=== PATIENT | female | born 1930 | race Caucasian/White ===

== ENCOUNTER 2017-05-16 11:16 | Emergency (ER) | payer OTHER, MEDICARE ==
[~2017-05-16] VITALS: Ht 152.4 cm; Wt 56.7 kg
[~2017-05-16 11:16] MED LIST: ACIDOPHILUS1 CAP PO; AGGRENOX 25 MG-1 CAP PO; ASPIRIN LOW DOS81 MG PO; CALCIUM 600600 M1 PO; CARLSON VITAM2000 IU PO; DOCUSATE SODIU100 MG PO; KEFLEX500 M1 PO; KEY-E400 IU PO; LISINOPRIL10 MG PO; LISINOPRIL5 MG PO; LOVENOX 4040 MG/0.4 SC; MASON NATURAL2000 IU PO; MULTI VITAMINS1 TAB PO; PERCOCET 325 MG1 TA2 PO; SIMVASTATIN80 MG PO; Senokot S PO; TOPROL XL 12.12.5 MG PO; TOPROL XL 25MG25 MG PO; VITAMIN B12 1541 TAB PO; VITAMIN B121000 MC2 PO
--- NOTE | 2017-05-16 14:41 | RADIOLOGY REPORT ---
EXAMINATION: LEFT FOOT AND ANKLE RADIOGRAPHS CLINICAL INFORMATION: 86-year-old woman with pain post fall. COMPARISON: 03/10/2015 radiographs TECHNIQUE: 3 views of the left ankle and 3 views of the left foot were obtained. FINDINGS: Ankle: There has been interval internal plate and screw fixation of previously visible distal fibular and tibial fractures. On today's film, there is no evidence of acute fracture and alignment is anatomic. Foot: There is no evidence of acute fracture. Alignment remains anatomic. There is degenerative loss of normal articular cartilage space. IMPRESSION: No evidence of acute fracture or dislocation involving the left foot or ankle.
--- NOTE | 2017-05-16 14:44 | RADIOLOGY REPORT ---
EXAMINATION: XR HIP, LEFT XR HIP, RIGHT XR KNEE, LEFT CLINICAL INFORMATION: Status post fall with bilateral hip pain COMPARISON: None TECHNIQUE: AP pelvis 2 views right hip 2 views left hip Four views of the left knee. FINDINGS: AP pelvis: The ilioischial and iliopectineal lines are maintained. There are mild degenerative changes at the level of the pubic symphysis. The sacroiliac joints appear symmetric. Degenerative changes are partially imaged involving the lower lumbar spine. Bowel gas pattern is nonspecific. A few calcified phleboliths are noted. Right hip: The femoral head appears normally located within the acetabulum. There is mild joint space narrowing with associated subchondral sclerosis along the acetabular roof. No fracture or dislocation. Left hip: The femoral head appears normally located within the acetabulum. There is mild joint space narrowing with chondral sclerosis along the acetabular roof. No fracture or subluxation. Left knee: There is significant joint space narrowing involving the medial compartment of the left knee with associated marginal osteophytes. There is moderate narrowing of the lateral compartment of the left knee with moderate osteophytes. No acute fracture or subluxation. No joint effusion. Small enthesophytes are present at the superior pole of the patella. Incidental note made of a bony excrescence along the medial aspect of the distal left femur. IMPRESSION: 1. No radiographic evidence for acute left or right hip fracture. 2. 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 3. Severe osteoarthritis involving the medial compartment of the left knee. No radiographic evidence for acute injury involving the left knee.
--- NOTE | 2017-05-16 15:38 | ED GI/GU/ABDOMINAL COMPLAINT ---
History of Present Illness General Chief Complaint: General Adult Stated Complaint: BIBA COULDN'T GET OUT OF BED, HIP,ANKLE PAIN Source: patient, family Exam Limitations: no limitations Vital Signs & Intake/Output Vital Signs & Intake/Output Vital Signs Date Time Temp Pulse Resp B/P B/P Pulse O2 O2 Flow FiO2 Mean Ox Delivery Rate 05/16 1152 98.7 64 15 146/75 94 Room Air Room Air Allergies Coded Allergies: codeine (Intermediate, PER PT: "WIPES ME OUT COMPLETELY" 05/16/17) Reconcile Medications Calcium Carbonate (Calcium 600) 600 MG TAB 1,200 TAB PO DAILY SUPPLEMENT ( Reported) Cephalexin (Keflex) 500 MG CAPSULE 1 CAP PO 4 TIMES/DAY cellulitis CHOLECALCIFEROL (VITAMIN D3) (Vitamin D) 2,000 IU SGL 1 SGL PO DAILY SUPPLEMENT (Reported) Cyanocobalamin (Vitamin B12) (Unknown Strength) TAB (Unknown Dose) PO DAILY SUPPLEMENT (Reported) Docusate Sodium 100 MG SGL 100 MG PO DAILY NEEDED PRN CONSTIPATION Enoxaparin Sodium (Lovenox 40MG/0.4ML) 40 MG/0.4 ML SYR 40 MG SC DAILY@1800 AIFB/ DVT PROPHYLAXIS Lactobacillus Acidophilus (Acidophilus) 1 CAP CAP 1 TAB PO DAILY SUPPLEMENT ( Reported) Lisinopril 10 MG TAB 1 TAB PO DAILY BP (Reported) Metoprolol Succ XL (Toprol XL 25MG) 25 MG TAB 1 TAB PO DAILY HIGH BLOOD PRESSURE Multivitamin (One Daily Multivitamin) 1 EACH TABLET 1 TAB PO DAILY SUPPLEMENT (Reported) OXYCODONE HCL/ACETAMINOPHEN (Percocet 5-325 MG Tablet) 325 MG/5 MG TAB 1 TAB PO Q6P PRN PAIN [Senokot S] 1 TAB PO BID CONSTIPATION Simvastatin (Zocor) 80 MG TABLET 1 TAB PO QPM CHOLESTEROL (Reported) Vitamin E (Traore-E) 400 IU CTB 1 TAB PO DAILY SUPPLEMENT (Reported) Triage Note: PT TO ED WITH SON-IN-LAW FOR C/C OF L ANKLE PAIN AND R HIP PAIN S/P FALLING ON WEDNESDAY AT 0300. PT DENIES HITTING HEAD OR PASSING OUT. ALSO COMPLAINS OF L KNEE PAIN AND BILATERAL HIP PAIN, RIGHT WORSE THAN LEFT. DENIED PAIN MEDS IN TRIAGE. NO OBVIOUS DEFORMITY NOTED. FALL RISK BAND APPLIED. Triage Nurses Notes Reviewed? yes ? N Is pt currently ? No Onset: Abrupt Duration: getting worse Timing: recent history Quality/Severity: moderate Severity Numbers: 5 Radiation: no radiation HPI: Patient is a 86-year-old female with past medical history of hypertension, vertigo, TIA, paroxysmal A. 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 Patient and family members deny any new fall Patient denies any fever chills weakness shortness of breath cough or leg swelling nausea vomiting abdominal pain chest pain and arm pain jaw pain diaphoresis. Denies any head strike neck pain back pain (Alejandro aPlomo) Past History Travel History Traveled to [place] past 21 day No Medical History Any Pertinent Medical History? see below for history Neurological: CVA, TIA, vertigo EENT: cataracts Cardiovascular: hyperlipidemia, paroxysmal atrial fibrillation Respiratory: NONE Gastrointestinal: NONE Hepatic: NONE Renal: NONE Musculoskeletal: NONE Psychiatric: NONE Endocrine: NONE Blood Disorders: NONE Cancer(s): NONE OB GYN/Reproductive: NONE History of MRSA: No History of VRE: No History of CDIFF: No Surgical History Surgical History: non-contributory Psychosocial History Who do you live with Patient/Self Services at Home None What is your primary language Urdu Tobacco Use: Never used Family History Family History, If Any: BROTHER FH: heart disease Hx Contributory? No (Alejandro Palomo) Review of Systems Review of Systems Constitutional: Reports: no symptoms. EENTM: Reports: no symptoms. Respiratory: Reports: no symptoms. Cardiovascular: Reports: no symptoms. GI: Reports: no symptoms. Genitourinary: Reports: no symptoms. Musculoskeletal: Reports: see HPI, joint pain. Skin: Reports: no symptoms. Neurological/Psychological: Reports: no symptoms. Hematologic/Endocrine: Reports: no symptoms. Immunologic/Allergic: Reports: no symptoms. All Other Systems: Reviewed and Negative (Alejandro Palomo) Physical Exam Physical Exam General Appearance: no apparent distress, comfortable, thin Head: atraumatic Eyes: Bilateral: normal appearance, PERRL. Ears, Nose, Throat, Mouth: hearing grossly normal Neck: normal inspection, full range of motion, no midline tenderness Respiratory: normal breath sounds, chest non-tender, no respiratory distress Cardiovascular: irregularly irregular Peripheral Pulses: 2+ radial (R), 2+ radial (L), 2+ dorsalis pedis (R), 2+ dorsalis pedis (L) Gastrointestinal: normal bowel sounds, soft, non-tender, no organomegaly Extremities: normal range of motion Skin: intact, normal color, warm/dry Comments: Bilateral shoulders normal inspection nontender full active range of motion Bilateral elbow and wrist normal inspection nontender full active range of motion Right hip normal inspection mild lateral hip point tenderness FULL ACTIVE range of motion patient able to perform straight leg raise Right knee and right ankle normal inspection nontender full active range of motion Left knee normal inspection nontender full active range of motion Left ankle normal inspection generalized point tenderness noted full active range of motion Core Measures ACS in differential dx? No Sepsis Present: No Sepsis Focused Exam Completed? No (Alejandro Palomo) Progress Differential Diagnosis: AAA, AMI, appendicitis, SBO Plan of Care: Orders Procedure Date/time Status EKG 05/16 1411 Active Laboratory Tests 05/16/17 1411: Troponin I Cancelled, CBC w Diff Cancelled, WBC Cancelled, RBC Cancelled, Hgb Cancelled, Hct Cancelled, MCV Cancelled, MCH Cancelled, MCHC Cancelled, RDW Cancelled, Plt Count Cancelled, MPV Cancelled Microbiology 05/16 1411 NASOPHARYN: Influenza Virus A & B Rapid Smear - CAN Cancelled: Cancelled via OE: Per MD Decision Differential diagnoses include fracture contusion ICH On initial examination patient was resting comply bedside and was asymptomatic x -rays were obtained from where patient was point tender showing unremarkable acute findings no concerns of fracture patient was neurovascularly intact patient was sitting in a wheelchair on initial examination however patient was able to ambulate with no assistance and denies any pain upon weight-bearing and gait activities patient rest complaining and the bedside for the physical exam Patient has nontender abdomen and no concerns of fracture at this time. Patient management evaluated the patient and will provide home health services son feels comfortable the patient can be discharged discussed disposition plan with Dr. BONE who agrees I strongly advised patient to begin using the walker for fall prevention Prior to evaluating patient patient had been resting in the waiting room in which I did order blood work and EKG due to the triage note stating that patient was too weak and painful to get out of bed however on examination patient was able to sit up and stand and walk without any assistance or pain this blood work and EKG was sent canceled No medications were administered prior to arrival Upon discharge patient looks well no apparent distress and will comply with discharge instructions and had no questions Diagnostic Imaging: Viewed by Me: Radiology Read. Radiology Impression: no fracture Initial ED EKG: none Comments: PATIENT: RONA EARLY PRESENT AGE: 86 PATIENT ACCOUNT NO: [id number] : [birth year] LOCATION: [facility] ORDERING PHYSICIAN: Satnam Bone MD SERVICE DATE: 05/16/17 EXAM TYPE: RAD - XRY-ANKLE 3 OR MORE VIEWS L; XRY-FOOT COMPLETE, LEFT EXAMINATION: LEFT FOOT AND ANKLE RADIOGRAPHS CLINICAL INFORMATION: 86-year-old woman with pain post fall. COMPARISON: 03/10/2015 radiographs TECHNIQUE: 3 views of the left ankle and 3 views of the left foot were obtained. FINDINGS: Ankle: There has been interval internal plate and screw fixation of previously visible distal fibular and tibial fractures. On today's film, there is no evidence of acute fracture and alignment is anatomic. Foot: There is no evidence of acute fracture. Alignment remains anatomic. There is degenerative loss of normal articular cartilage space. IMPRESSION: No evidence of acute fracture or dislocation involving the left foot or ankle. DICTATED BY: Michelle Bobo MD DATE/TIME DICTATED:05/16/171435 ARCADE TECHNICIAN:MARIA ALEJANDRA DATE/TIME TRANSCRIBED:05/16/171435 CONFIDENTIAL, DO NOT COPY WITHOUT APPROPRIATE AUTHORIZATION. <Electronically signed in Other Vendor System> SIGNED BY: Michelle Bobo MD 05/16/17 1441 PATIENT: RONA EARLY PRESENT AGE: 86 PATIENT ACCOUNT NO: [id number] : [birth year] LOCATION: [facility] ORDERING PHYSICIAN: Satnam Bone MD SERVICE DATE: 05/16/17 EXAM TYPE: RAD - XRY-HIP 4 VIEWS UNI, LEFT; XRY-HIP 4 VIEWS UNI, RIGHT; XRY-KNEE COMPLETE LEFT EXAMINATION: XR HIP, LEFT XR HIP, RIGHT XR KNEE, LEFT CLINICAL INFORMATION: Status post fall with bilateral hip pain COMPARISON: None TECHNIQUE: AP pelvis 2 views right hip 2 views left hip Four views of the left knee. FINDINGS: AP pelvis: The ilioischial and iliopectineal lines are maintained. There are mild degenerative changes at the level of the pubic symphysis. The sacroiliac joints appear symmetric. Degenerative changes are partially imaged involving the lower lumbar spine. Bowel gas pattern is nonspecific. A few calcified phleboliths are noted. Right hip: The femoral head appears normally located within the acetabulum. There is mild joint space narrowing with associated subchondral sclerosis along the acetabular roof. No fracture or dislocation. Left hip: The femoral head appears normally located within the acetabulum. There is mild joint space narrowing with chondral sclerosis along the acetabular roof. No fracture or subluxation. Left knee: There is significant joint space narrowing involving the medial compartment of the left knee with associated marginal osteophytes. There is moderate narrowing of the lateral compartment of the left knee with moderate osteophytes. No acute fracture or subluxation. No joint effusion. Small enthesophytes are present at the superior pole of the patella. Incidental note made of a bony excrescence along the medial aspect of the distal left femur. IMPRESSION: 1. No radiographic evidence for acute left or right hip fracture. 2. 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 3. Severe osteoarthritis involving the medial compartment of the left knee. No radiographic evidence for acute injury involving the left knee. DICTATED BY: Zee Allen MD DATE/TIME DICTATED:05/16/171435 ARCADE TECHNICIAN:MARIA ALEJANDRA DATE/TIME TRANSCRIBED:05/16/171435 (Alejandro Palomo) Departure Departure Disposition: HOME OR SELF CARE Condition: Stable Clinical Impression Primary Impression: Arthralgia Secondary Impressions: Contusion, Fall Referrals: Lefty GAXIOLA,Denis Kaiser (PCP/Family) Additional Instructions: As discussed ALWAYS use your assisted walker for fall prevention, continue home medications as directed If symptoms worsen return to emergency room, follow-up with your primary care doctor this week for recheck of symptoms YOU will receive a phone call to set up home physical therapy services Begin [id number] Naprosyn as directed for pain and inflammation Departure Forms: Customer Survey General Discharge Information (Alejandro Palomo) PA/INSPECTOR [employer] Co-Sign Statement Statement: ED Attending supervision documentation- x I saw and evaluated the patient. I have also reviewed all the pertinent lab results and diagnostic results. I agree with the findings and the plan of care as documented in the PA's/INS[employer]OR [employer]'s documentation. [] I have reviewed the ED Record and agree with the PA's/INS[employer]'s documentation. [] Additions or exceptions (if any) to the PAs/INS[employer]OR [employer]'s note and plan are summarized below: [] (Soto GAXIOLA,Satnam)
[2017-05-16 16:54] VITALS: BP 137/56
== END 2017-05-16 17:11 ==
LOC: ERH 11:16
DX: S70.01XA Contusion of right hip, initial encounter (principal); M25.551 Pain in right hip; W06.XXXA Fall from bed, initial encounter; Y92.009 Unspecified place in unspecified non-institutional (private) residence as the place of occurrence of the external cause; Y93.9 Activity, unspecified
CPT/HCPCS: 73562-LT; 73610-LT; 73630-LT; 87804; 87804-59

== ENCOUNTER 2017-06-26 08:05 | Emergency (ER) | payer OTHER, MEDICARE ==
[~2017-06-26] VITALS: Ht 160 cm; Wt 54.4 kg
--- NOTE | 2017-06-26 08:23 | ED MVC/FALL/TRAUMA COMPLAINT ---
History of Present Illness General Chief Complaint: Fall Stated Complaint: BIBA FALL Source: patient, family, old records, EMS Exam Limitations: no limitations Vital Signs & Intake/Output Vital Signs & Intake/Output Vital Signs Date Time Temp Pulse Resp B/P B/P Pulse O2 O2 Flow FiO2 Mean Ox Delivery Rate 06/26 0810 96.1 74 18 177/70 96 Room Air Allergies Coded Allergies: codeine (Intermediate, PER PT: "WIPES ME OUT COMPLETELY" 05/16/17) Reconcile Medications Calcium Carbonate (Calcium 600) 600 MG TAB 1,200 TAB PO DAILY SUPPLEMENT ( Reported) Cephalexin (Keflex) 500 MG CAPSULE 1 CAP PO 4 TIMES/DAY cellulitis CHOLECALCIFEROL (VITAMIN D3) (Vitamin D) 2,000 IU SGL 1 SGL PO DAILY SUPPLEMENT (Reported) Cyanocobalamin (Vitamin B12) (Unknown Strength) TAB (Unknown Dose) PO DAILY SUPPLEMENT (Reported) Docusate Sodium 100 MG SGL 100 MG PO DAILY NEEDED PRN CONSTIPATION Enoxaparin Sodium (Lovenox 40MG/0.4ML) 40 MG/0.4 ML SYR 40 MG SC DAILY@1800 AIFB/ DVT PROPHYLAXIS Lactobacillus Acidophilus (Acidophilus) 1 CAP CAP 1 TAB PO DAILY SUPPLEMENT ( Reported) Lisinopril 10 MG TAB 1 TAB PO DAILY BP (Reported) Metoprolol Succ XL (Toprol XL 25MG) 25 MG TAB 1 TAB PO DAILY HIGH BLOOD PRESSURE Multivitamin (One Daily Multivitamin) 1 EACH TABLET 1 TAB PO DAILY SUPPLEMENT (Reported) OXYCODONE HCL/ACETAMINOPHEN (Percocet 5-325 MG Tablet) 325 MG/5 MG TAB 1 TAB PO Q6P PRN PAIN [Senokot S] 1 TAB PO BID CONSTIPATION Simvastatin (Zocor) 80 MG TABLET 1 TAB PO QPM CHOLESTEROL (Reported) Vitamin E (Traore-E) 400 IU CTB 1 TAB PO DAILY SUPPLEMENT (Reported) Triage Note: PT BIBA TO ED FROM ASSISTED LIVING S/P FALL. PT UNSURE OF WHAT HAPPENED. WAS FOUND ON FLOOR BY EMS. PT UNSURE OF HEAD STRIKE. PT IS SLIGHTLY CONFUSED, ALERT TO SELF AND PLACE, UNKNOWN TIME, SON IN LAW STATES THAT IS NORMAL FOR PT. PT C/O LEFT ANKLE PAIN, SON IN LAW STATES PT HAS H/O ANKLE FRACTURE WITH SURGERY AND HAS CHRONIC PAIN AND SWELLING TO LEFT ANKLE. AWAITING PROVIDER EVAL. Triage Nurses Notes Reviewed? yes HPI: Patient brought in by ambulance from assisted living after fall. Patient remembers getting up this morning and then thinks she lost her balance but she is unsure. Patient has dementia. Patient has a history of falls. Patient is unsure if she hit her head. Patient's only complaint is pain in her sacral area. Patient cannot describe the pain. There is no radiation. The pain is moderate on the pain scale. Patient has chronic pain in her left ankle. Patient had fractured her ankle in the past and has required surgery. Patient states the pain is not worse than it normally is. Patient summons lives at the bedside and states that she is at her baseline mentally. Past History Travel History Traveled to [place] past 21 day No Medical History Any Pertinent Medical History? see below for history Neurological: Alzheimer's disease, CVA, TIA, vertigo EENT: cataracts Cardiovascular: hyperlipidemia, paroxysmal atrial fibrillation Respiratory: NONE Gastrointestinal: NONE Hepatic: NONE Renal: NONE Musculoskeletal: NONE Psychiatric: NONE Endocrine: NONE Blood Disorders: NONE Cancer(s): NONE HIM ANALYST/Reproductive: NONE History of MRSA: No History of VRE: No History of CDIFF: No Surgical History Surgical History: non-contributory Psychosocial History Who do you live with Patient/Self Services at Home None What is your primary language Upper Sorbian Tobacco Use: Never used ETOH Use: denies use Illicit Drug Use: denies illicit drug use Family History Family History, If Any: BROTHER FH: heart disease Hx Contributory? No Review of Systems Review of Systems Constitutional: Reports: no symptoms. Eyes: Reports: no symptoms. Ears, Nose, Throat, Mouth: Reports: no symptoms. Respiratory: Reports: no symptoms. Cardiovascular: Reports: no symptoms. Gastrointestinal/Abdominal: Reports: no symptoms. Genitourinary: Reports: no symptoms. Musculoskeletal: Reports: see HPI, back pain. Skin: Reports: no symptoms. Neurological/Psychological: Reports: no symptoms. All Other Systems: Reviewed and Negative Physical Exam Physical Exam General Appearance: well developed/nourished, awake, mild distress Head: atraumatic, normal appearance Eyes: Bilateral: PERRL, EOMI. Ears, Nose, Throat, Mouth: hearing grossly normal, moist mucous membrane Neck: normal inspection, supple, full range of motion, no midline tenderness Respiratory: normal breath sounds, chest non-tender, no respiratory distress, lungs clear Cardiovascular: regular rate/rhythm, normal peripheral pulses Gastrointestinal: normal bowel sounds, soft, non-tender, no organomegaly Back: muscle spasm Extremities: normal range of motion, pelvis stable, OLD ECCHYMOSIS TO LEFT ELBOW Core Measures ACS in differential dx? No CVA/TIA Diagnosis No Sepsis Present: No Sepsis Focused Exam Completed? No Progress Differential Diagnosis: C/T/L spine injury Plan of Care: Orders Procedure Date/time Status XRY-SACRUM AND COCCYX 06/26 821 Active Diagnostic Imaging: Viewed by Me: Radiology Read, CT Scan. Discussed w/RAD: Radiology Read, CT Scan. Radiology Impression: PATIENT: RONA EARLY PRESENT AGE: 86 PATIENT ACCOUNT NO: [id number] : [birth year] LOCATION: [facility] ORDERING PHYSICIAN: Rodriguez Pugh MD SERVICE DATE: 06/26/17 EXAM TYPE: CAT - CT HEAD WO IV CONTRAST EXAMINATION: CT HEAD WITHOUT CONTRAST CLINICAL INFORMATION: Fall, trauma COMPARISON: CT head 02/15/2014. TECHNIQUE: Contiguous axial imaging was performed from the skull base to vertex without intravenous administration of contrast. Additional 2-D coronal reformatted images are generated on the CT workstation up loaded into PACS. DLP: 562 mGy-cm FINDINGS: There is no intracranial hemorrhage, hematoma, or extra-axial fluid collection. The ventricles are normal in size. There is no hydrocephalus, edema, or mass effect. There are mild atrophic changes with prominence of the cortical sulci and fissures and cisterns similar to prior study. Again, there are bilateral basal ganglia calcifications. The brush-white matter differentiation is grossly symmetric. There is no visible acute territorial infarct or mass lesion. The calvarium appears intact. There is no pneumocephalus or orbital emphysema. The visualized sinuses and middle ears and mastoid air cells show no significant mucosal thickening. There are no air-fluid levels. IMPRESSION: No acute intracranial abnormality. DICTATED BY: Israel Carrasquillo MD DATE/TIME DICTATED:845 REFUELER:MARIA ALEJANDRA DATE/TIME TRANSCRIBED:06/26/17845 CONFIDENTIAL, DO NOT COPY WITHOUT APPROPRIATE AUTHORIZATION. <Electronically signed in Other Vendor System> SIGNED BY: Israel Carrasquillo MD 06/26/17 0903 , PATIENT: RONA EARLY PRESENT AGE: 86 PATIENT ACCOUNT NO: [id number] : [birth year] LOCATION: [facility] ORDERING PHYSICIAN: Rodriguez Pugh MD SERVICE DATE: 06/26/17 EXAM TYPE: CAT - CT CERV SPINE WO IV CONTRAST EXAMINATION: CT CERVICAL SPINE WITHOUT CONTRAST CLINICAL INFORMATION : Trauma. Fall COMPARISON: None TECHNIQUE: CT cervical spine without intrathecal contrast DLP: 317.22 mGy-cm FINDINGS: No abnormal prevertebral soft tissue swelling is seen. No abnormal paraspinal muscle soft tissue change or loss of fat planes identified. No acute cervical spine fracture is seen. Pterygoid plates intact. Visualized paranasal sinuses and mastoid air cells are aerated. There is multilevel degenerative change of the cervical spine noted. There are noted to be some erosive changes about the odontoid which may be related to rheumatoid arthritis or other erosive arthritides from pannus formation. There is narrowing of the C1-C2 joint space with some marginal spurring. There is a few millimeters of degenerative subluxation of C4 anteriorly on C5 and on C6 anterior to C5. There is significant narrowing of the C5-C6 and C6-C7 disc spaces with marginal spurring. Spurring joints of Luschka at the C5-C6 level is seen but without significant anterior neural foraminal encroachment identified. There is facet degenerative change present C2-C5. IMPRESSION: No acute cervical spine fracture. Degenerative change as described above most prominent at the C5- C7 levels. Erosive changes involving the odontoid which may be related to erosive arthritides such as rheumatoid arthritis. DICTATED BY: Sergo Head MD DATE/TIME DICTATED:06/26/17906 REFUELER:MARIA ALEJANDRA DATE/TIME TRANSCRIBED:06/26/17906 CONFIDENTIAL, DO NOT COPY WITHOUT APPROPRIATE AUTHORIZATION. <Electronically signed in Other Vendor System> SIGNED BY: Sergo Head MD 06/26/17 0942, PATIENT: RONA EARLY PRESENT AGE: 86 PATIENT ACCOUNT NO: [id number] : [birth year] LOCATION: [facility] ORDERING PHYSICIAN: Rodriguez Pugh MD SERVICE DATE: 06/26/17 EXAM TYPE: RAD - XRY-SACRUM AND COCCYX EXAMINATION: XR SACRUM AND COCCYX CLINICAL INFORMATION: Fall. Pain. COMPARISON: Right and left hip films dated 05/16/2017. TECHNIQUE: 2 views of the sacrum and coccyx were obtained on 3 images. FINDINGS: Evaluation is significantly limited with poor visualization of the bone detail of the sacrum and coccyx. There appears to be diffuse osteopenia. The sacroiliac joints, pubic symphysis and included hip joints appear intact. The sacral ala in the upper and mid sacrum appear symmetric bilaterally. No definite sacral fracture is appreciated, though diagnostic confidence is extremely limited. No definite coccygeal fracture is seen. Moderate degenerative changes are seen in the lower lumbar spine. IMPRESSION: Limited exam. No definite fracture of the bony sacrum or coccyx is seen. However, diagnostic confidence is low. Depending on level of clinical suspicion, additional assessment with CT scan can be performed. DICTATED BY: Sara Valdez MD DATE/TIME DICTATED:06/26/17958 REFUELER:MARIA ALEJANDRA DATE/TIME TRANSCRIBED:06/26/17958 CONFIDENTIAL, DO NOT COPY WITHOUT APPROPRIATE AUTHORIZATION. <Electronically signed in Other Vendor System> SIGNED BY: Sara Valdez MD 06/26/17 1006 Comments: Patient is post walk with a walker however she was not doing so this morning. Departure Departure Disposition: HOME OR SELF CARE Condition: Stable Clinical Impression Primary Impression: Fall Secondary Impressions: Back pain, Head injury Referrals: Lefty GAXIOLA,Denis Kaiser (PCP/Family) Additional Instructions: MAKE SURE YOU USE YOUR WALKER RETURN IF SYMPTOMS WORSEN OR FOR ANY CONCERNS Departure Forms: Customer Survey General Discharge Information
--- NOTE | 2017-06-26 09:03 | CT SCAN REPORT ---
EXAMINATION: CT HEAD WITHOUT CONTRAST CLINICAL INFORMATION: Fall, trauma COMPARISON: CT head 02/15/2014. TECHNIQUE: Contiguous axial imaging was performed from the skull base to vertex without intravenous administration of contrast. Additional 2-D coronal reformatted images are generated on the CT workstation up loaded into PACS. DLP: 562 mGy-cm FINDINGS: There is no intracranial hemorrhage, hematoma, or extra-axial fluid collection. The ventricles are normal in size. There is no hydrocephalus, edema, or mass effect. There are mild atrophic changes with prominence of the cortical sulci and fissures and cisterns similar to prior study. Again, there are bilateral basal ganglia calcifications. The brush-white matter differentiation is grossly symmetric. There is no visible acute territorial infarct or mass lesion. The calvarium appears intact. There is no pneumocephalus or orbital emphysema. The visualized sinuses and middle ears and mastoid air cells show no significant mucosal thickening. There are no air-fluid levels. IMPRESSION: No acute intracranial abnormality.
--- NOTE | 2017-06-26 09:42 | CT SCAN REPORT ---
EXAMINATION: CT CERVICAL SPINE WITHOUT CONTRAST CLINICAL INFORMATION: Trauma. Fall COMPARISON: None TECHNIQUE: CT cervical spine without intrathecal contrast DLP: 317.22 mGy-cm FINDINGS: No abnormal prevertebral soft tissue swelling is seen. No abnormal paraspinal muscle soft tissue change or loss of fat planes identified. No acute cervical spine fracture is seen. Pterygoid plates intact. Visualized paranasal sinuses and mastoid air cells are aerated. There is multilevel degenerative change of the cervical spine noted. There are noted to be some erosive changes about the odontoid which may be related to rheumatoid arthritis or other erosive arthritides from pannus formation. There is narrowing of the C1-C2 joint space with some marginal spurring. There is a few millimeters of degenerative subluxation of C4 anteriorly on C5 and on C6 anterior to C5. There is significant narrowing of the C5-C6 and C6-C7 disc spaces with marginal spurring. Spurring joints of Luschka at the C5-C6 level is seen but without significant anterior neural foraminal encroachment identified. There is facet degenerative change present C2-C5. IMPRESSION: No acute cervical spine fracture. Degenerative change as described above most prominent at the C5-C7 levels. Erosive changes involving the odontoid which may be related to erosive arthritides such as rheumatoid arthritis.
--- NOTE | 2017-06-26 10:06 | RADIOLOGY REPORT ---
EXAMINATION: XR SACRUM AND COCCYX CLINICAL INFORMATION: Fall. Pain. COMPARISON: Right and left hip films dated 05/16/2017. TECHNIQUE: 2 views of the sacrum and coccyx were obtained on 3 images. FINDINGS: Evaluation is significantly limited with poor visualization of the bone detail of the sacrum and coccyx. There appears to be diffuse osteopenia. The sacroiliac joints, pubic symphysis and included hip joints appear intact. The sacral ala in the upper and mid sacrum appear symmetric bilaterally. No definite sacral fracture is appreciated, though diagnostic confidence is extremely limited. No definite coccygeal fracture is seen. Moderate degenerative changes are seen in the lower lumbar spine. IMPRESSION: Limited exam. No definite fracture of the bony sacrum or coccyx is seen. However, diagnostic confidence is low. Depending on level of clinical suspicion, additional assessment with CT scan can be performed.
[2017-06-26 10:47] VITALS: BP 140/80
== END 2017-06-26 10:48 ==
LOC: ERH 08:05
DX: S09.90XA Unspecified injury of head, initial encounter (principal); M53.3 Sacrococcygeal disorders, not elsewhere classified; W19.XXXA Unspecified fall, initial encounter; Y93.9 Activity, unspecified; Y92.129 Unspecified place in nursing home as the place of occurrence of the external cause
CPT/HCPCS: 72220